=== PATIENT | female | born 1960 | race Caucasian/White ===

== ENCOUNTER 2021-03-14 17:39 | Emergency (ER) | payer BC, OTHER ==
[2021-03-14] MEDS ORDERED: Codeine/guaiFENesin 100mg-10 MG/5 ML Soln 118 ML Bottle PO ONE (17:40)
[2021-03-14] MEDS ORDERED: Iopamidol 755 Mg/ML 100 ML Bottle IV ONE (19:49)
--- NOTE | 2021-03-14 20:07 | EDM.PDOC ---
ED HPI GENERAL MEDICAL PROBLEM - General Chief Complaint: Respiratory Problem Stated Complaint: COVID POS, LOW O2 Time Seen by Provider: 03/14/21 20:00 Source of Information: Reports: Patient History Limitations: Reports: No Limitations - History of Present Illness INITIAL COMMENTS - FREE TEXT/NARRATIVE: 60-year-old lady came to the emergency department due to increasing shortness of breath and somewhat due to increasing fatigue. She was diagnosed with COVID-19 on 03/06/2021. Prior to diagnosis of COVID-19 she was in her normal state of health and has no significant health history. She was feeling poorly and went to her primary care physician's office on 03/12/2021. She was given a prednisone Dosepak with taper and a Z-Jasson. She states that overall this seemed to help improve her symptoms but she continues to feel more short of breath and had some increased fatigue as mentioned above. She has a pulse oximeter at home and noticed that her pulse ox was getting into the upper 80s. She felt that this was too low and was concerned and came to the emergency department. - Related Data Allergies Allergy/AdvReac Type Severity Reaction Status Date / Time Sulfa (Sulfonamide Allergy Cannot Verified 03/14/21 18:35 Antibiotics) Remember Home Meds: Home Meds Azithromycin 250 mg PO DAILY 03/14/21 [History] Codeine/guaiFENesin [guaiFENesin-Codeine Syrup] 10 ml PO Q4HR #200 ml 03/14/21 [Rx] predniSONE 20 mg PO DAILY #5 tab 03/14/21 [Rx] predniSONE [Prednisone] 20 mg PO DAILY 03/14/21 [History] ED ROS GENERAL - Review of Systems Review Of Systems: See Below Constitutional: Reports: Fatigue HEENT: Reports: No Symptoms Respiratory: Reports: Shortness of Breath Cardiovascular: Reports: No Symptoms Endocrine: Reports: No Symptoms GI/Abdominal: Reports: No Symptoms : Reports: No Symptoms Musculoskeletal: Reports: No Symptoms Skin: Reports: No Symptoms Neurological: Reports: No Symptoms Psychiatric: Reports: No Symptoms Hematologic/Lymphatic: Reports: No Symptoms Immunologic: Reports: No Symptoms ED EXAM, GENERAL - Physical Exam Exam: See Below Exam Limited By: No Limitations General Appearance: Alert, No Apparent Distress Eye Exam: Bilateral Eye: EOMI Head: Atraumatic, Normocephalic Neck: Normal Inspection Respiratory/Chest: Decreased Breath Sounds, Crackles GI/Abdominal: Normal Bowel Sounds, Non-Tender Back Exam: Normal Inspection Extremities: Normal Inspection Neurological: Alert, Oriented, CN II-XII Intact, Normal Cognition, Normal Gait Psychiatric: Normal Affect, Normal Mood Skin Exam: Warm, Dry Course - Vital Signs Text/Narrative:: Review of labs shows an elevated D-dimer. CTA of the chest was negative for pulmonary embolism and showed groundglass opacities in the mid and lower lung [place] consistent with COVID-19 infection. Patient will occasionally be sent to 88% while at rest. She desatted to less than 88% while walking back from CT. Patient continues to have difficulty with cough and was given Robitussin-AC. Patient was also given incentive spirometer. Note that when patient is using her incentive spirometer she will have increased cough but will have O2 sats that increased to around 93 to 94%. Last Recorded V/S: Last Vital Signs Temp 37.7 C 03/14/21 17:39 Pulse 70 03/14/21 17:39 Resp 22 H 03/14/21 17:39 BP 130/72 03/14/21 17:39 Pulse Ox 91 L 03/14/21 17:39 - Orders/Labs/Meds Orders: Active Orders 24 hr Category Date Time Status Incentive Spirometry [RT Incentive Spirometry] [RC] Care 03/14/21 22:33 Active Q1HWA Ang Chest [CT] Stat Exams 03/14/21 19:41 Taken Labs: Laboratory Tests 03/14/21 03/14/21 03/14/21 Range/Units 18:50 18:50 18:50 WBC 3.6 (3.0-10.3) x10-3/uL RBC 3.77 (3.60-5.20) x10(6)uL Hgb 11.1 L (11.4-15.5) g/dL Hct 32.4 L (34.2-48.2) % MCV 86.0 (76.7-100.5) fL MCH 29.4 (23.9-33.9) pg MCHC 34.2 (31.9-34.8) g/dL RDW 13.9 (12.3-16.5) % Plt Count 217 (151-488) x10(3)uL MPV 7.0 L (7.1-12.4) fL Neut % (Auto) 79.9 H (30.8-76.2) % Lymph % (Auto) 13.0 L (18.4-52.1) % [place] % (Auto) 7.0 (4.4-15.7) % Eos % (Auto) 0.0 L (0.6-8.1) % Baso % (Auto) 0.1 L (0.2-1.5) % Neut # (Auto) 2.9 (1.5-6.3) x10-3/uL Lymph # (Auto) 0.5 L (1.0-4.4) x10-3/uL [place] # (Auto) 0.3 (0.3-1.0) x10-3/uL Eos # (Auto) 0.0 (0.0-0.8) x10-3/uL Baso # (Auto) 0.0 (0.0-0.1) x10-3/uL D-Dimer, Quantitative 1.55 H (0.0-0.59) mg/LFEU Sodium 136 (135-145) mmol/L Potassium 3.7 (3.5-5.3) mmol/L Chloride 99 L (100-110) mmol/L Carbon Dioxide 28 (21-32) mmol/L BUN 16 (7-18) mg/dL Creatinine 0.9 (0.55-1.02) mg/dL Est Cr Clr Drug Dosing 58.32 mL/min Estimated GFR (MDRD) > 60 (>60) BUN/Creatinine Ratio 17.8 (9-20) Glucose 127 H (80-116) mg/dL Calcium 8.3 L (8.6-10.2) mg/dL Total Bilirubin 0.6 (0.1-1.3) mg/dL AST 43 H (5-25) IU/L ALT 26 (12-36) U/L Alkaline Phosphatase 74 (56-112) IU/L Troponin I (4.0-60.3) pg/mL NT-Pro-B Natriuret Pep (<=125) pg/mL Total Protein 7.3 (6.0-8.0) g/dL Albumin 3.1 L (3.2-4.6) g/dL Globulin 4.2 g/dL Albumin/Globulin Ratio 0.7 12/06/21 Range/Units 18:50 WBC (3.0-10.3) x10-3/uL RBC (3.60-5.20) x10(6)uL Hgb (11.4-15.5) g/dL Hct (34.2-48.2) % MCV (76.7-100.5) fL MCH (23.9-33.9) pg MCHC (31.9-34.8) g/dL RDW (12.3-16.5) % Plt Count (151-488) x10(3)uL MPV (7.1-12.4) fL Neut % (Auto) (30.8-76.2) % Lymph % (Auto) (18.4-52.1) % [place] % (Auto) (4.4-15.7) % Eos % (Auto) (0.6-8.1) % Baso % (Auto) (0.2-1.5) % Neut # (Auto) (1.5-6.3) x10-3/uL Lymph # (Auto) (1.0-4.4) x10-3/uL [place] # (Auto) (0.3-1.0) x10-3/uL Eos # (Auto) (0.0-0.8) x10-3/uL Baso # (Auto) (0.0-0.1) x10-3/uL D-Dimer, Quantitative (0.0-0.59) mg/LFEU Sodium (135-145) mmol/L Potassium (3.5-5.3) mmol/L Chloride (100-110) mmol/L Carbon Dioxide (21-32) mmol/L BUN (7-18) mg/dL Creatinine (0.55-1.02) mg/dL Est Cr Clr Drug Dosing mL/min Estimated GFR (MDRD) (>60) BUN/Creatinine Ratio (9-20) Glucose (80-116) mg/dL Calcium (8.6-10.2) mg/dL Total Bilirubin (0.1-1.3) mg/dL AST (5-25) IU/L ALT (12-36) U/L Alkaline Phosphatase (56-112) IU/L Troponin I 7.0 (4.0-60.3) pg/mL NT-Pro-B Natriuret Pep 44 (<=125) pg/mL Total Protein (6.0-8.0) g/dL Albumin (3.2-4.6) g/dL Globulin g/dL Albumin/Globulin Ratio Meds: Medications Discontinued Medications Generic Name Dose Route Start Last Admin Trade Name Joseph PRN Reason Stop Dose Admin Guaifenesin/Codeine Phosphate 5 ml 03/14/21 22:33 03/14/21 22:48 Codeine/Guaifenesin 10-100 Mg/5 Ml Syrup 5 Ml Cup PO 03/14/21 22:34 5 ml ONETIME ONE Administration Iopamidol 100 ml 03/14/21 19:49 03/14/21 20:28 Iopamidol 755 Mg/Ml 100 Ml Bottle IV 03/14/21 19:50 85 ml . DIRECTED ONE Administration Departure - Departure Time of Disposition: 23:18 Disposition: Home, Self-Care 01 Condition: Fair Clinical Impression: COVID-19, Hypoxia - Discharge Information *PRESCRIPTION DRUG MONITORING PROGRAM REVIEWED*: Not Applicable *COPY OF PRESCRIPTION DRUG MONITORING REPORT IN PATIENT JORGE LUIS: Not Applicable Instructions: Shortness of Breath, Adult, [id number], COVID-19 Frequently Asked Questions, Prone Position Therapy, COVID-19: What to Do If You Are Sick- [facility] (06/[facility]2020), 10 Things You Can Do to Manage Your COVID-19 Symptoms at Home - [facility] (10/22/2020) Referrals: Oleg Gonzalez MD [Primary Care Provider] - Forms: ED Department Discharge Additional Instructions: Patient is being discharged to home with supplemental oxygen which will be delivered to her home in the morning. She is also being discharged home with incentive spirometer. Patient is encouraged to use the incentive spirometer at least hourly while awake. Patient is also being discharged with additional prednisone, 20 mg daily for an additional 5 days. Patient encouraged to use supplemental oxygen whenever her O2 saturations dropped below 88%. She is encouraged to walk, perform activities of daily living such as cooking, cleaning but she will need to wear her oxygen cannula with sufficient oxygen flow to maintain oxygen saturations above 88%. She is encouraged not to use suppleme ntal oxygen if O2 sats are above 88%. I instructed her to return to the emergency department immediately if she is unable to maintain oxygen saturations greater than 88% without using less than 4 L of oxygen. That is, if she needs 5 L or more of oxygen via nasal cannula to maintain greater than 88% she should come to the emergency room immediately. Sepsis Event Note (ED) - Evaluation Sepsis Screening Result: No Definite Risk - Focused Exam Vital Signs: Vital Signs Temp Pulse Resp BP Pulse Ox 03/14/21 17:39 37.7 C 70 22 H 130/72 91 L - My Orders Last 24 Hours: My Active Orders 03/14/21 19:41 Ang Chest [CT] Stat 03/14/21 22:33 Incentive Spirometry [RT Incentive Spirometry] [RC] Q1HWA - Assessment/Plan Last 24 Hours: My Active Orders 03/14/21 19:41 Ang Chest [CT] Stat 03/14/21 22:33 Incentive Spirometry [RT Incentive Spirometry] [RC] Q1HWA
[2021-03-14] MEDS ORDERED: Codeine/guaiFENesin 10-100 MG/5 ML Syrup 5 ML Cup PO ONE (22:33)
== END 2021-03-15 00:32 | disposition home or self-care (01) ==
LOC: FB.ED 17:39
DX: U07.1 COVID-19 (principal); R09.02 Hypoxemia; Z88.2 Allergy status to sulfonamides
CPT/HCPCS: 36415; 71275; 80053; 83880; 84484; 85025; 85379; 94150; 99284; 99285; A9270; Q9967

== ENCOUNTER 2021-08-26 07:38 | Day surgery (SDC) | payer OTHER ==
[~2021-08-26 07:38] MED LIST: Lactated Ringers 1,000 ML IV SCH; Sodium Chloride 0.9% 10 ML Syringe FLUSH PRN
[2021-08-26] MEDS ORDERED: Propofol 200 MG/20 ML SDV IV ONE (07:39)
== END 2021-08-26 10:10 | disposition home or self-care (01) ==
LOC: FB.SDS 07:38
PROVIDERS: ATTEND Surgery
DX: Z12.11 Encounter for screening for malignant neoplasm of colon (principal); K63.89 Other specified diseases of intestine; Z79.899 Other long term (current) drug therapy; Z88.2 Allergy status to sulfonamides; Z98.890 Other specified postprocedural states
CPT/HCPCS: 00812; 45378; J2704; J7120